=== PATIENT | male | born 1955 | race Hispanic/Latino ===

== ENCOUNTER → 2018-06-10 08:47 | Outpatient (CLI) | payer OTHER, SELFPAY ==
[2018-06-10 09:37] LABS: Creatinine Urine Random 273.5 mg/dL
[2018-06-10 09:40] LABS: Hemoglobin A1C% w Est Avg Glu 6.5 % (4.0-6.0)
[2018-06-10 09:42] LABS: Microalbumi Creatinin Ratio Ur 21.2 ug/mg CR (<30); Microalbumin Urine Random 5.8 mg/dL (0-1.6)
[2018-06-10 10:11] LABS: Alanine Aminotransferase 59 IU/L (21-72); Albumin 4.2 g/dL (3.5-5.0); Albumin Globulin Ratio 1.3 (1.0-2.8); Alkaline Phosphatase 57 U/L (38-126); Aspartate Aminotransferase 58 IU/L (17-59); BUN Creatinine Ratio 13.3 (6-22); Bilirubin Total 0.7 mg/dL (0.2-1.3); Blood Urea Nitrogen 12 mg/dL (9-20); Calcium 9.1 mg/dL (8.4-10.2); Carbon Dioxide 28 mmol/L (22-32); Chloride 103 mmol/L (98-107); Cholesterol 156 mg/dL (140-199); Estimated Glomerular Filt Rate > 60.0 mL/min (>60); Globulin 3.2 g/dL (1.7-4.1); Glucose 141 mg/dL (80-110); HDL Cholesterol 47 mg/dL (40-60); HEMOLYSIS < 15 (0-50); LDL Cholesterol Calculated 79 mg/dL (<100); Potassium 3.8 mmol/L (3.4-5.1); Sodium 144 mmol/L (137-145); Total Protein 7.4 g/dL (6.3-8.2); Triglycerides 148 mg/dL (35-150)
[2018-06-10 10:22] LABS: Vitamin D 25 Hydroxy (D3) 36.3 ng/mL (30.0-100.0)
== END ==
PROVIDERS: PCP Student in an Organized Health Care Education/Training Program; Visit Provider Student in an Organized Health Care Education/Training Program
DX: E11.9 Type 2 diabetes mellitus without complications (principal); E78.00 Pure hypercholesterolemia, unspecified; E55.9 Vitamin D deficiency, unspecified; Z79.899 Other long term (current) drug therapy
CPT/HCPCS: 36415; 80053; 80061; 82043; 82306; 82570; 83036

== ENCOUNTER 2018-11-22 23:42 | Emergency (ER) | payer OTHER, SELFPAY ==
[2018-11-22 23:52] VITALS: BP 152/92; PULSE 88; RESP 20; TEMP 36.6; O2SAT 93; BMI 38.7
--- NOTE | 2018-11-23 01:46 | ED.ABDPAIN ---
HPI - Abdominal Pain General Chief Complaint: Abdominal Pain Stated Complaint: extreme abdominal pain Time Seen by Provider: 11/23/18 01:01 Source: patient Mode of arrival: ambulatory Limitations: no limitations History of Present Illness HPI narrative: Patient is a 63-year-old male here for evaluation of left-sided abdominal pain. Patient states that approximately 1 hr prior to arrival here in the ER he bent over to orange picker his dog when he got a sudden onset of left-sided abdominal pain. He stated that he reaches maximal intensity very quickly. Lasted approximately 15 min and then has gradually improved since then to the point now where it is almost gone. Denies any other associated symptoms. Related Data Home Medications Medication Instructions Recorded Confirmed aspirin 81 mg PO QDAY #0 11/09/17 07/27/18 ranitidine 150 mg capsule 150 mg PO DAILY 07/27/18 Previous Rx's Medication Instructions Recorded albuterol sulfate [Ventolin HFA] 2 puff INH Q4HP PRN #1 ea 11/09/17 metformin ER 500 mg 500 mg PO DAILY #90 tab 10/04/18 tablet,extended release 24 hr losartan 50 mg-hydrochlorothiazide 1 tab PO DAILY #90 tab 11/03/18 12.5 mg tablet simvastatin 20 mg tablet 20 mg PO BEDTIME #90 tab 11/03/18 blood sugar diagnostic strips #100 each 11/21/18 lancets #100 each 11/21/18 Allergies Allergy/AdvReac Type Severity Reaction Status Date / Time iodine [IODINE] Allergy Unknown Verified 11/22/18 23:52 shellfish derived Allergy Unknown Verified 11/22/18 23:52 [SHELLFISH DERIVED] MIRIAM Inhibitors AdvReac Mild Cough Verified 11/22/18 23:52 Review of Systems Constitutional Denies fever(s) Cardiovascular Denies chest pain and Denies dyspnea Respiratory Denies dyspnea Gastrointestinal Gastrointestinal: Reports abdominal pain, Denies diarrhea, Denies nausea and Denies vomiting Genitourinary Denies genital pain, Denies dysuria and Denies testicular pain Musculoskeletal Denies myalgias and Denies arthralgias Integumentary/Breasts Denies rash Neurologic Denies behavioral changes Psychiatric Denies behavioral changes Hematologic/Lymphatic Denies easy bleeding and Denies easy bruising [facility] Medical History Actinic keratosis (Chronic Unknown) Asthma (Chronic Unknown) Chronic back pain (Chronic Unknown) Diabetes (Chronic 2017) Glaucoma (Chronic 2010) Vertigo (Chronic 2004) Acne (Resolved Unknown) Chickenpox (Resolved) Fractures (Resolved Unknown) Measles (Resolved) Mumps (Resolved) Shoulder pain (Resolved Unknown) Tuberculosis (Resolved Unknown) Surgical History Hx of shoulder surgery (Resolved 2016) Family History Father No problems noted. Brother No problems noted. Sister Diabetes mellitus Grandfather Diabetes mellitus Social History Smoking Status: Never smoker alcohol intake: current substance use type: does not use Family History Father No problems noted. Brother No problems noted. Sister Diabetes mellitus Grandfather Diabetes mellitus Social History Smoking Status: Never smoker alcohol intake: current substance use type: does not use Exam Initial Vital Signs Initial Vital Signs: Vital Signs Temperature 97.8 F 11/22/18 23:52 Pulse Rate 88 11/22/18 23:52 Respiratory Rate 20 11/22/18 23:52 Blood Pressure 152/92 H 11/22/18 23:52 Pulse Oximetry 93 11/22/18 23:52 Const General: cooperative, comfortable, well developed, well groomed and No acute distress Orientation: alert, awake and oriented x3 Resp Effort & Inspection: normal respiratory effort Auscultation: clear to auscultation bilaterally Cardio Rate: regular rate Rhythm: regular rhythm GI Inspection: non-distended Palpation: soft, No firm and No tender Back/Spine/Pelvis Back: No CVA tenderness Skin Lesions: no lesions Rashes: no rashes Wounds: no wounds Neuro General: alert, awake and oriented x3 Cognition: normal cognition Speech: speech normal Extrem General: normal to inspection and capillary refill normal Psych Appearance: grossly normal and well kempt Course Orders Ordered: ED Orders 11/23/18 01:02 Complete Blood Count AUTO DIFF Stat Comprehensive Metabolic Panel Stat Lipase Stat Vital Signs - 8 hr 11/22/18 23:52 11/23/18 02:05 Temperature 97.8 F 98.2 F Pulse Rate 88 84 Respiratory Rate 20 18 Blood Pressure 152/92 H Pulse Oximetry 93 96 MDM - Abdominal Pain MDM Narrative Medical decision making narrative: No rashes concerning for zoster. No urinary symptoms. He stated that the pain was worse with palpation which makes kidney stone unlikely. Patient without any fevers or change in bowel habits. Since the symptoms were sudden onset when he bent over and are now improving this makes diverticulitis unlikely. I discussed all this with the patient his . They opted not to have any labs or CT scan or x-rays performed. I do not think this is unreasonable. Patient stated that he will follow up with his primary doctor. He was given return precautions. He expressed understanding and agreement with plan. Discharge Plan Departure Patient Disposition: Home Clinical Impression: Abdominal pain Qualifiers: Abdominal location: left lower quadrant Qualified Code(s): R10.32 - Left lower quadrant pain Discharge Date/Time: 11/23/18 02:05 Interventions: ED Discharge Assessment Last Done: 11/23/18 02:05 Instructions: DI for Abdominal Muscle Strain Activity Restrictions/Additional Instructions: Contact your primary care doctor. Return to the emergency department for any new or worsening symptoms Prescriptions: No Action aspirin 81 MG tablet,delayed release (DR/EC) 81 mg PO QDAY Qty: 0 RF: 0 albuterol sulfate [Ventolin HFA] 90 MCG/PUFF HFA aerosol inhaler 2 puff INH Q4HP PRNQty: 1 RF: 5 metformin [Glucophage XR] 500 mg tablet extended release 24 hr 500 mg PO DAILY Qty: 90 RF: 1 losartan-hydrochlorothiazide 50-12.5 mg tablet 1 tab PO DAILY Qty: 90 RF: 3 simvastatin 20 mg tablet 20 mg PO BEDTIME Qty: 90 RF: 3 Accu-Chek Isis Plus test strp strip .ROUTE .MEDSUPPLY Qty: 100 RF: 3 lancets [Accu-Chek Softclix Lancets] misc .ROUTE .MEDSUPPLY Qty: 100 RF: 3 ranitidine HCl 150 mg capsule 150 mg PO DAILY RF: 0 Referrals: Román Solano MD [Primary Care Provider] -
[2018-11-23 02:05] VITALS: PULSE 84; RESP 18; TEMP 36.8; O2SAT 96
== END 2018-11-23 02:05 | disposition home or self-care (01) ==
PROVIDERS: Emergency Provider Emergency Medicine; Family Provider Student in an Organized Health Care Education/Training Program; PCP Student in an Organized Health Care Education/Training Program
DX: R10.32 Left lower quadrant pain (principal)
CPT/HCPCS: 99282; 99283

== ENCOUNTER → 2019-06-01 07:33 | Outpatient (CLI) | payer MEDICARE, OTHER, SELFPAY ==
[2019-06-01 08:30] LABS: BUN Creatinine Ratio 17.8 (6-22); Blood Urea Nitrogen 16 mg/dL (9-20); Calcium 9.3 mg/dL (8.4-10.2); Carbon Dioxide 26 mmol/L (22-32); Chloride 104 mmol/L (98-107); Creatine Kinase 210 U/L (55-170); Estimated Glomerular Filt Rate > 60.0 mL/min (>60); Glucose 131 mg/dL (80-110); HEMOLYSIS < 15 (0-50); Magnesium 2.2 mg/dL (1.6-2.3); Potassium 4.1 mmol/L (3.4-5.1); Sodium 140 mmol/L (137-145)
[2019-06-01 08:59] LABS: Prostate Specific Antigen 1.16 ng/mL (0.10-4.00)
== END ==
PROVIDERS: PCP Student in an Organized Health Care Education/Training Program; Visit Provider Student in an Organized Health Care Education/Training Program
DX: E11.9 Type 2 diabetes mellitus without complications (principal); E66.09 Other obesity due to excess calories; I10 Essential (primary) hypertension; R25.2 Cramp and spasm; Z85.46 Personal history of malignant neoplasm of prostate
CPT/HCPCS: 36415; 80048; 82550; 83036; 83735; 84153

== ENCOUNTER → 2019-09-22 12:00 | Outpatient (CLI) | payer MEDICARE, OTHER, SELFPAY ==
[2019-09-22 13:13] LABS: Blood Urea Nitrogen 14 mg/dL (9-20); Calcium 9.9 mg/dL (8.4-10.2); Carbon Dioxide 26 mmol/L (22-32); Chloride 102 mmol/L (98-107); Cholesterol 187 mg/dL (140-199); Creatine Kinase 264 U/L (55-170); Estimated Glomerular Filt Rate > 60.0 mL/min (>60); Glucose 99 mg/dL (80-110); HDL Cholesterol 47 mg/dL (40-60); HEMOLYSIS 20 (0-50); LDL Cholesterol Calculated 109 mg/dL (<100); Potassium 3.9 mmol/L (3.4-5.1); Sodium 138 mmol/L (137-145); Triglycerides 154 mg/dL (35-150)
== END ==
PROVIDERS: PCP Student in an Organized Health Care Education/Training Program; Visit Provider Student in an Organized Health Care Education/Training Program
DX: E11.9 Type 2 diabetes mellitus without complications (principal); I10 Essential (primary) hypertension; R25.2 Cramp and spasm
CPT/HCPCS: 80048; 80061; 82550

== ENCOUNTER → 2019-12-21 10:18 | Outpatient (CLI) | payer MEDICARE, OTHER, SELFPAY | PROVIDERS: PCP Student in an Organized Health Care Education/Training Program; Visit Provider Family Medicine | DX: R31.9 Hematuria, unspecified (principal); R35.0 Frequency of micturition | CPT/HCPCS: 87077; 87086; 87186 ==

== ENCOUNTER → 2020-02-08 11:02 | Outpatient (CLI) | payer MEDICARE, OTHER, SELFPAY ==
[2020-02-08 12:22] LABS: Hemoglobin A1C% w Est Avg Glu 6.3 % (4.0-6.0)
== END ==
PROVIDERS: PCP Student in an Organized Health Care Education/Training Program; Referring Provider Student in an Organized Health Care Education/Training Program; Visit Provider Student in an Organized Health Care Education/Training Program
DX: Z13.9 Encounter for screening, unspecified (principal); E11.9 Type 2 diabetes mellitus without complications
CPT/HCPCS: 36415; 83036

== ENCOUNTER 2020-04-13 18:02 | Emergency (ER) | payer MEDICARE, OTHER, SELFPAY ==
[2020-04-13 18:26] VITALS: BMI 39.4
[2020-04-13 18:30] VITALS: BP 129/82; PULSE 99; RESP 20; TEMP 37.1; O2SAT 99
--- NOTE | 2020-04-13 18:46 | ED_ITS ---
HPI - Extremity Injury (Lower) General Chief Complaint: Extremity Injury, Lower Stated Complaint: total knee Wed, has a fever now Time Seen by Provider: 04/13/20 18:13 Source: patient and family Mode of arrival: Ambulatory Limitations: no limitations History of Present Illness HPI Narrative: 64-year-old male nonsmoker with history of diabetes and hypertension presents with a chief complaint of a low-grade fever of 99 with some pain in his right lower extremity over the past few days. He states 4 days ago he had a right total knee performed at the [facility]. He denies any drainage from the incision. He is not dizzy nor weak or lightheaded. He denies any runny nose, sore throat or cough. He has had no chest pain or shortness of breath. He denies any discoloration to his lower extremity. Related Data Previous Rx's Medication Instructions Recorded blood sugar diagnostic #100 each 11/21/18 lancets #100 each 11/21/18 albuterol sulfate 90 mcg/actuation 2 puff INHALATION Q4HP PRN #6.7 09/22/19 aerosol inhaler gram tizanidine 4 mg tablet 4 mg PO BID PRN #60 tab 09/29/19 metformin 500 mg tablet,extended 500 mg PO DAILY #90 tab 10/24/19 release 24 hr losartan 50 mg tablet 50 mg PO DAILY #90 tab 01/19/20 Allergies Allergy/AdvReac Type Severity Reaction Status Date / Time iodine [IODINE] Allergy Unknown Verified 03/28/20 10:12 shellfish derived Allergy Unknown Verified 03/28/20 10:12 [SHELLFISH DERIVED] Cenxoqu-Xuh-Jtl Reductase AdvReac Intermediate Rhabdomyoly Verified 03/28/20 10:12 Inhibitor sis MIRIAM Inhibitors AdvReac Mild Cough Verified 03/28/20 10:12 Review of Systems Constitutional Constitutional: Denies chills, Denies fatigue, Reports fever(s), Denies frequent falls, Denies lethargy and Denies weakness Eyes Eyes: Denies change in vision, Denies eye discharge, Denies irritation and Denies loss of vision ENT Ears, Nose, Mouth, and Throat: Denies change in voice, Denies dizziness, Denies neck pain, Denies sore throat and Denies throat swelling Cardiovascular Cardiovascular: Denies chest pain, Denies irregular heart rhythm, Denies lightheadedness, Denies palpitations, Denies dyspnea, Denies dyspnea on exertion and Denies orthopnea Respiratory Respiratory: Denies cough, Denies dyspnea, Denies dyspnea on exertion and Denies wheezing Gastrointestinal Gastrointestinal: Denies abdominal pain, Denies change in bowel habits, Denies diarrhea, Denies nausea and Denies vomiting Musculoskeletal Musculoskeletal: Reports arthralgias, Reports joint swelling, Denies neck pain and Denies numbness Integumentary/Breasts Skin/Breast: Denies pruritus, Denies erythema, Denies rash and Denies wounds Neurologic Neurologic: Denies behavioral changes, Denies confusion, Denies dizziness, Denies frequent falls, Denies loss of vision, Denies numbness and Denies weakness Psychiatric Psychiatric: Denies anxiety, Denies behavioral changes, Denies confusion, Denies depression, Denies homicidal ideation and Denies suicidal ideation Endocrine Endocrine: Denies fatigue, Denies flushing and Denies palpitations Hematologic/Lymphatic Hematologic/Lymphatic: Denies easy bruising Allergic/Immunologic Allergic/Immunologic: Denies urticaria, Denies throat swelling and Denies wheezing Patient History Medical History Acne (Resolved Unknown) Actinic keratosis (Chronic Unknown) Asthma (Chronic Unknown) Chickenpox (Resolved) Chronic back pain (Chronic Unknown) Diabetes (Chronic 2017) Fractures (Resolved Unknown) Glaucoma (Chronic 2010) Measles (Resolved) Mumps (Resolved) Shoulder pain (Resolved Unknown) Tuberculosis (Resolved Unknown) Vertigo (Chronic 2004) Surgical History History of prostate surgery (Acute) Hx of shoulder surgery (Resolved 2016) Family History Father No problems noted. Brother No problems noted. Sister Diabetes mellitus Grandfather Diabetes mellitus Social History Smoking Status: Never smoker alcohol intake: current substance use type: does not use Smoking Status: Never smoker alcohol intake frequency: a few times a week Substance Use Type: does not use Exam Narrative Exam Narrative: GENERAL: [64] year old patient appears stated age. Well-nouris hed, well-developed patient, in mild distress. HEAD: Atraumatic. Normocephalic. EYES: Pupils equal round and reactive. Extraocular motions intact. No scleral icterus. No injection or drainage. ENT: Nose without bleeding, purulent drainage. Throat without erythema, tonsillar hypertrophy or exudate. Airway patent. NECK: Trachea midline. Non tender CARDIOVASCULAR: Regular rate and rhythm without murmurs, gallops, or rubs. RESPIRATORY: Clear to auscultation. Breath sounds equal bilaterally. No wheezes, rales, or rhonchi. GASTROINTESTINAL: Abdomen soft, non-tender, nondistended. EXTREMITIES: Right knee midline surgical incision is clean, dry and intact. No significant or unexpected swelling to the knee. No pain, redness or swelling to the calf or medial thigh. No edema or joint tenderness. BACK: Nontender without deformity or crepitance. No flank tenderness. NEURO: AOx3. SKIN: No rash or erythema of visible areas Initial Vital Signs Initial Vital Signs: Vital Signs Temperature 98.8 F 04/13/20 18:30 Pulse Rate 99 H 04/13/20 18:30 Respiratory Rate 20 04/13/20 18:30 Blood Pressure 129/82 04/13/20 18:30 Pulse Oximetry 99 04/13/20 18:30 Course Course Course Narrative: Patient has a very reassuring exam and labs. Discussion with on-call orthopedist with the patient's croup and they sure the opinion that these are most likely common sequela in the post surgical phase and recommend discharge with previously given discharge instructions. Orders Ordered: Discontinued Medications Sodium Chloride (Normal Saline 0.9%) 1,000 mls @ 125 mls/hr IV CONT GIOVANNA Vital Signs Vital signs: Vital Signs - 8 hr 04/13/20 18:30 Temperature 98.8 F Pulse Rate 99 H Respiratory Rate 20 Blood Pressure 129/82 Pulse Oximetry 99 MDM - Extremity Injury (Lower) Lab Data Result diagrams: 04/13/20 19:41 Labs: Lab Results 04/13/20 04/13/20 04/13/20 Range/Units 19:41 19:41 19:41 WBC 6.2 (4.5-11.0) X10^3/uL RBC 3.63 L (4.5-5.9) X10^6/uL Hgb 12.0 L (13.5-17.5) g/dL Hct 34.9 L (41-53) % MCV 96.1 (80-100) fL MCH 33.1 (26-34) PG MCHC 34.4 (30-36) % RDW 13.6 (11.6-14.8) % Plt Count 122 L (150-400) X10^3/uL Neut % (Auto) 65.8 (50-75) % Lymph % (Auto) 24.1 L (25-40) % [place] % (Auto) 8.9 (3-14) % Eos % (Auto) 0.8 L (2-4) % Baso % (Auto) 0.4 (0-2) % Neut # (Auto) 4100 (8743-5642) /uL Lymph # (Auto) 1500 (2322-4444) /uL [place] # (Auto) 600 (0-900) /uL Eos # (Auto) 0 (0-450) /uL Baso # (Auto) 0 (0-100) /uL Lactate 0.8 (0.7-2.1) mmol/L C-Reactive Protein (<1.0) mg/dL Procalcitonin < 0.05 (<0.5) ng/mL 04/13/20 Range/Units 19:41 WBC (4.5-11.0) X10^3/uL RBC (4.5-5.9) X10^6/uL Hgb (13.5-17.5) g/dL Hct (41-53) % MCV (80-100) fL MCH (26-34) PG MCHC (30-36) % RDW (11.6-14.8) % Plt Count (150-400) X10^3/uL Neut % (Auto) (50-75) % Lymph % (Auto) (25-40) % [place] % (Auto) (3-14) % Eos % (Auto) (2-4) % Baso % (Auto) (0-2) % Neut # (Auto) (3138-9836) /uL Lymph # (Auto) (9776-6172) /uL [place] # (Auto) (0-900) /uL Eos # (Auto) (0-450) /uL Baso # (Auto) (0-100) /uL Lactate (0.7-2.1) mmol/L C-Reactive Protein 16.4 H (<1.0) mg/dL Procalcitonin (<0.5) ng/mL Urine Dip Bedside Urine Glucose Negative Bedside Urine Bilirubin - Negative Bedside Urine Ketone +/- 5 Urine Specific [place] 1.010 Bedside Urine Occult Blood - Negative Bedside Urine pH 7.5 Bedside Urine Protein - Negative Bedside Urine Urobilinogen - Negative Bedside Urine Nitrite - Negative Bedside Urine Leukocytes - Negative Esterase Discharge Plan Departure Patient Disposition: Home Clinical Impression: Feared complaint without diagnosis, Swelling of lower extremity Discharge Date/Time: 04/13/20 20:16 Instructions: DI for Postoperative Pain Activity Restrictions/Additional Instructions: *You have been diagnosed with [postoperative swelling and low-grade fever. We have discussed this with your surgical team and they sure the opinion that this is unlikely to be infection or other concerning cause and likely and expected consequence of her surgery.] *What to do: *Take medications as directed *Follow up with your primary care provider in 2-3 days, call for an appointment. Let them know you were seen in the Emergency Department and that we ask that you be seen in follow up *Return to ER if you should have any new, worsening or concerning symptoms Prescriptions: No Action (DME) Accu-Chek Isis Plus test strp strip See Dose Instructions .ROUTE .MEDSUPPLY Qty: 100 RF: 3 (DME) lancets [Accu-Chek Softclix Lancets] misc See Dose Instructions .ROUTE .MEDSUPPLY Qty: 100 RF: 3 tizanidine 4 mg tablet 4 mg PO BID PRN (Reason: muscle spasticity) Qty: 60 RF: 2 metformin [Glucophage XR] 500 mg tablet extended release 24 hr 500 mg PO DAILY Qty: 90 RF: 1 losartan 50 mg tablet 50 mg PO DAILY Qty: 90 RF: 1 albuterol sulfate [Ventolin HFA] 90 mcg/actuation HFA aerosol inhaler 2 puff inhalation Q4HP PRN (Reason: shortness of breath or wheezing) Qty: 6.7 RF: 11 Referrals: Román Solano MD [Primary Care Provider] -
--- NOTE | 2020-04-13 19:07 | DI.RAD.S_ITS ---
PROCEDURE: XR CHEST 1V INDICATIONS: post operative fever TECHNIQUE: One view of the chest was acquired. COMPARISON: None. FINDINGS: Surgical changes and devices: None. Lungs and pleura: Lungs are clear. No pleural effusions or pneumothorax. Mediastinum: Mediastinal contours appear normal. Heart size is normal. Bones and chest wall: No suspicious bony lesions. Overlying soft tissues appear unremarkable. IMPRESSION: No evidence acute pulmonary process. Dictated by: Hugo Carlos M.D. on 04/13/2020 at 19:41 Approved by: Hugo Carlos M.D. on 04/13/2020 at 19:42
--- NOTE | 2020-04-13 19:09 | PC.NURSE ---
Spoke with pt's surgeon resident David and he stated that him and the pt's MD Goldman believe this to be a normal post fever and swelling d\t an increase in activity. Information passed along to Dr. Brink
[2020-04-13 19:50] LABS: Add Manual Diff / Slide Review NO; Basophils Absolute Auto 0 /uL (0-100); Basophils Percent Auto 0.4 % (0-2); Eosinophils Absolute Auto 0 /uL (0-450); Eosinophils Percent Auto 0.8 % (2-4); Hematocrit 34.9 % (41-53); Lymphocytes Absolute Auto 1500 /uL (1100-4500); Lymphocytes Percent Auto 24.1 % (25-40); Mean Corpuscular HGB Conc 34.4 % (30-36); Mean Corpuscular Hemoglobin 33.1 PG (26-34); Mean Corpuscular Volume 96.1 fL (80-100); Monocytes Absolute Auto 600 /uL (0-900); Monocytes Percent Auto 8.9 % (3-14); Neutrophils Absolute Auto 4100 /uL (1500-7000); Neutrophils Percent Auto 65.8 % (50-75); Platelet Count 122 X10^3/uL (150-400); Red Blood Cell Count 3.63 X10^6/uL (4.5-5.9); Red Cell Distribution Width 13.6 % (11.6-14.8); White Blood Cell Count 6.2 X10^3/uL (4.5-11.0)
[2020-04-13 20:03] LABS: Lactate (Lactic Acid) 0.8 mmol/L (0.7-2.1)
[2020-04-13 20:11] VITALS: BP 123/80; PULSE 93; RESP 16; O2SAT 94
[2020-04-13 20:17] LABS: C-Reactive Protein Quant 16.4 mg/dL (<1.0)
[2020-04-13 20:20] LABS: Procalcitonin < 0.05 ng/mL (<0.5)
== END 2020-04-13 20:16 | disposition home or self-care (01) ==
PROVIDERS: Emergency Provider Emergency Medicine; PCP Student in an Organized Health Care Education/Training Program
DX: G89.18 Other acute postprocedural pain (principal); R50.9 Fever, unspecified; E11.9 Type 2 diabetes mellitus without complications; I10 Essential (primary) hypertension; Z96.651 Presence of right artificial knee joint
CPT/HCPCS: 36415; 71045; 81003; 83605; 84145; 85025; 86140; 87040; 99283; 99284

== ENCOUNTER → 2020-05-03 14:26 | Outpatient (CLI) | payer MEDICARE, OTHER, SELFPAY ==
[2020-05-03 16:44] LABS: Prostate Specific Antigen 1.31 ng/mL (0.10-4.00)
== END ==
PROVIDERS: PCP Student in an Organized Health Care Education/Training Program; Referring Provider Urology; Visit Provider Urology
DX: Z12.5 Encounter for screening for malignant neoplasm of prostate (principal)
CPT/HCPCS: 36415; 84153; G0103

== ENCOUNTER 2020-07-01 09:45 | Outpatient (RCR) | payer MEDICARE, OTHER, SELFPAY ==
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
--- NOTE | 2020-04-15 12:51 | PT.OPPOC ---
Physical, Occupational & Speech Therapy At [facility] Current Diagnoses Presence of right artificial knee joint (04/15/20) Visit Care Team Role Provider Type Román Solano MD Primary Care Provider Physician Specialty: Internal Medicine Address: [address] [place] [address], [address], [place], [address] Email: [email or web address] Dionisio Goldman MD Attending Provider Non-Staff Referring Provider Specialty: Orthopedic Surgery Address: [address] [facility], [address], [place], [address] Email: Plan Of Care PT-OP-T Assessment and Plan Start: 04/15/20 07:21 Freq: Status: Active Protocol: Document 04/15/20 08:11 MB (Rec: 04/15/20 08:56 MB [id number]) Physical Therapy Assessment Rehab Potential Rehabilitation Potential Good Evaluation Complexity Number of Personal Factors/Comorbidities 1-2 Number of Body Systems Impaired 1-2 Clinical Presentation at Evaluation Stable Impairments Impairments Activity Tolerance,Balance, Edema,Functional Activities, Functional Mobility,Gait, Integument,Pain,Posture,ROM, Sensation,Soft Tissue Mobility ,Strength Other Impairments Pt reports mild numbness and tingling lateral, medial and posterior right knee. PT does not doff right LAURA hose and PT observes long scab vertically across right knee and ecchymosis under LAURA hose. Goals 5 Health Technician Hearing Goal (LTG) Pt will gait train 4 steps with 1 rail with reciprocal gait to allow safe entry into home by 06/15/2020. LTG Duration 8 weeks 4 Senior Care Goal (LTG) Pt will perform progressive HEP including alignment, ROM, flexibility, gait, balance and strengthening exercises with I to improve strength and range by 06/25/2020. LTG Duration 8 weeks 3 Health Technician Hearing Goal (LTG) Pt will perform 15 reps sit to stand without UE support in 30 sec to improve functional strength by by 06/25/2020. LTG Duration 8 weeks 2 Senior Care Goal (LTG) Pt will present with AROM right knee to at least 0-125 deg to improve functional transfers by 06/25/2020. LTG Duration 8 weeks 1 Impairment LEF reflects 76.25% dysfunction Senior Care Goal (LTG) Pt will present with improved LEF score to reflect no more than 25% impairment to reflect improved pain and function by 06/15/2020. LTG Duration 8 weeks Assessment Summary Assessment Pt is a 64 y/o male presenting 5 days post-op right TKR. Pt' s biggest complaints are 5-6/ 10 right anterior, lateral and posterior thigh and knee pain and swelling. He wears thigh high LAURA hose and presents with scab, ecchymosis and edema under hose. Pt arrives gait training with mostly reciprocal gait using RW and he presents with decreased balance, range of motion and strength. PT ed pt in benefits of using frozen vegetables that conform to surface on top of and underneath his right knee while elevating his right leg and performing APs. He will benefit from PT to improve gait, balance, range of motion, flexibility and strength. Current barriers are edema and pain after TKR. Physical Therapy Plan Frequency and Duration Frequency of Treatment 2x/Week Duration of Treatment 8 weeks Plan of Care Start Date 04/15/20 Plan of Care End Date 06/17/20 Therapeutic Interventions Therapeutic Interventions Aquatic Therapy,Balance Training,Canalithic Repositioning,Gait Training, Home Exercise Program,Manual Therapy,Neuromuscular Re- education,Patient/Caregiver Education,Self-Care/Home Management,Soft Tissue Mobilization,Taping, Therapeutic Activities, Therapeutic Exercises Modalities Cold Pack/Ice Massage,Electric Stimulation,Hot Packs, Ultrasound Next Visit Focus/Plan Next Note Type Treatment Note Next Visit Plan Assess gait with cane and start NuStep to improve right knee range Plan of Care Dates Plan of Care Start Date 04/15/20 Plan of Care End Date 06/17/20 Electronically Signed by: Ginny Keenan PT 04/15/20 [id number] Please Sign and Return: I have reviewed this Plan of Care and certify that the skilled therapy services above are required to meet the patient?s needs. Physician Signature Date Printed Name and Credentials Clinical Instructor Signature Printed Name and Credentials
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
--- NOTE | 2020-05-24 09:01 | PT.OPPOC ---
Physical, Occupational & Speech Therapy At [facility] Current Diagnoses Presence of right artificial knee joint (05/24/20) Visit Care Team Role Provider Type Román Solano MD Primary Care Provider Physician Specialty: Internal Medicine Address: [address] [place] [address], [address], [place], [address] Email: [email or web address] Dionisio Goldman MD Attending Provider Non-Staff Referring Provider Specialty: Orthopedic Surgery Address: [address], [address], [place], [address] Email: Plan Of Care PT-OP-T Assessment and Plan Start: 04/15/20 07:21 Freq: Status: Active Protocol: Document 05/24/20 08:16 MB (Rec: 05/24/20 08:59 MB [id number]) Physical Therapy Assessment Rehab Potential Rehabilitation Potential Good Evaluation Complexity Number of Personal Factors/Comorbidities 1-2 Number of Body Systems Impaired 1-2 Clinical Presentation at Evaluation Stable Impairments Impairments Activity Tolerance,Balance, Edema,Functional Activities, Functional Mobility,Gait, Integument,Pain,Posture,ROM, Sensation,Soft Tissue Mobility ,Strength Other Impairments Pt reports mild numbness and tingling lateral, medial and posterior right knee. PT does not doff right LAURA hose and PT observes long scab vertically across right knee and ecchymosis under LAURA hose. Goals 6 Care Home Goal (LTG) Pt will gait train at least 1500 feet in 6 minutes without AD to return to normal community ambulation by 2019. 05/24/2020: 1263 ft in 6 minutes without AD 5 Pipeline Dispatch Operator Goal (LTG) Pt will gait train 4 steps with 1 rail with reciprocal gait to allow safe entry into home by 06/15/2020. 05/24/2020: Pt has been performing reciprocal gait with 1 step LTG Duration Goal met 4 Pipeline Dispatch Operator Goal (LTG) Pt will perform progressive HEP including alignment, ROM, flexibility, gait, balance and strengthening exercises with I to improve strength and range by 07/24/2020. 05/24/2020: Pt is focusing on stairs and stair stretch and is not using cane as much LTG Duration 8 weeks 3 Pipeline Dispatch Operator Goal (LTG) Pt will perform 15 reps sit to stand without UE support in 30 sec to improve functional strength by by 07/24/2020. 05/24/2020: 11 reps in 30 sec LTG Duration 8 weeks 2 Care Home Goal (LTG) Pt will present with AROM right knee to at least 0-115 deg to improve functional transfers by 07/24/2020. 05/24/2020: AROM right knee 0- 100 deg today LTG Duration 8 weeks 1 Impairment LEF reflects 76.25% dysfunction Care Home Goal (LTG) Pt will present with improved LEF score to reflect no more than 25% impairment to reflect improved pain and function by 07/24/2020. 05/24/2020: LEF score reflects 51.25% impairment LTG Duration 8 weeks Assessment Summary Assessment Pt has progressed towards all PT goals since starting PT. These include ROM, sit to stands (functional strengthening), gait without AD, performance of HEP and LE functional index goal. Pt will benefit from ongoing PT to improve balance, range and functional strength. Con't progression including gait, flexibility, range and strength. Physical Therapy Plan Frequency and Duration Frequency of Treatment 2x/Week Duration of Treatment 8 weeks Plan of Care Start Date 05/24/20 Plan of Care End Date 07/24/20 Therapeutic Interventions Therapeutic Interventions Aquatic Therapy,Balance Training,Canalithic Repositioning,Gait Training, Home Exercise Program,Manual Therapy,Neuromuscular Re- education,Patient/Caregiver Education,Self-Care/Home Management,Soft Tissue Mobilization,Taping, Therapeutic Activities, Therapeutic Exercises Modalities Cold Pack/Ice Massage,Electric Stimulation,Hot Packs, Ultrasound Next Visit Focus/Plan Next Note Type Treatment Note Next Visit Plan Consider adding band to sit to stands. Progress flexibility including stretches, strengthening. gait, consider manually assisted PNF to assist with right knee functional range/neuromuscular re-ed Plan of Care Dates Plan of Care Start Date 05/24/20 Plan of Care End Date 07/24/20 Electronically Signed by: Ginny Keenan, PT 05/24/20 0901 Please Sign and Return: I have reviewed this Plan of Care and certify that the skilled therapy services above are required to meet the patient?s needs. Physician Signature Date Printed Name and Credentials Clinical Instructor Signature Printed Name and Credentials
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
--- NOTE | 2020-06-03 09:18 | PT-OP ANOTE ---
Pt does not show for appointment. When PT calls him, he states that he cancelled the appointment via Tele[employer]. Pt confirms Wednesday appointment.
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
== END 2020-07-08 15:21 ==
LOC: PHYS 09:45
PROVIDERS: PCP Student in an Organized Health Care Education/Training Program; Referring Provider Orthopaedic Surgery; Visit Provider Orthopaedic Surgery
DX: Z96.651 Presence of right artificial knee joint (principal)
CPT/HCPCS: 97110; 97112; 97116; 97140; 97161; 97535

== ENCOUNTER → 2020-08-20 11:53 | Outpatient (CLI) | payer MEDICARE, OTHER, SELFPAY ==
[2020-08-20 12:34] LABS: Hemoglobin A1C% w Est Avg Glu 6.6 % (4.0-6.0)
== END ==
PROVIDERS: PCP Student in an Organized Health Care Education/Training Program; Referring Provider Student in an Organized Health Care Education/Training Program; Visit Provider Student in an Organized Health Care Education/Training Program
DX: E11.9 Type 2 diabetes mellitus without complications (principal)
CPT/HCPCS: 36415; 83036

== ENCOUNTER 2020-08-28 15:28 | Emergency (ER) | payer MEDICARE, OTHER, SELFPAY ==
[2020-08-28 15:35] VITALS: BP 136/90; PULSE 118; RESP 16; TEMP 37.1; O2SAT 95; BMI 37.8
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
[2020-08-28] MEDS: TET,DIPH,PERTUSS(ACELL),VAC/PF 0.5 ML SYRINGE IM (16:31)
[2020-08-28 16:52] VITALS: BP 130/86; PULSE 102; RESP 18; O2SAT 94
== END 2020-08-28 16:53 | disposition home or self-care (01) ==
PROVIDERS: Emergency Provider Emergency Medicine; PCP Student in an Organized Health Care Education/Training Program
DX: S01.81XA Laceration without foreign body of other part of head, initial encounter (principal); W22.8XXA Striking against or struck by other objects, initial encounter; Z23 Encounter for immunization
CPT/HCPCS: 90471; 99281; 99283; 90715

== ENCOUNTER → 2021-03-28 09:24 | Outpatient (CLI) | payer MEDICARE, SELFPAY ==
[2021-03-28 10:04] LABS: Add Manual Diff / Slide Review NO; Basophils Absolute Auto 0 /uL (0-100); Basophils Percent Auto 0.5 % (0-2); Eosinophils Absolute Auto 100 /uL (0-450); Eosinophils Percent Auto 2.7 % (2-4); Hematocrit 45.8 % (41-53); Hemoglobin 15.3 g/dL (13.5-17.5); Lymphocytes Absolute Auto 1900 /uL (1100-4500); Lymphocytes Percent Auto 40.7 % (25-40); Mean Corpuscular HGB Conc 33.4 % (30-36); Mean Corpuscular Hemoglobin 32.8 PG (26-34); Mean Corpuscular Volume 98.1 fL (80-100); Monocytes Absolute Auto 400 /uL (0-900); Monocytes Percent Auto 8.2 % (3-14); Neutrophils Absolute Auto 2200 /uL (1500-7000); Neutrophils Percent Auto 47.9 % (50-75); Platelet Count 129 X10^3/uL (150-400); Red Blood Cell Count 4.67 X10^6/uL (4.5-5.9); Red Cell Distribution Width 13.7 % (11.6-14.8); White Blood Cell Count 4.6 X10^3/uL (4.5-11.0)
[2021-03-28 10:27] LABS: Alanine Aminotransferase 36 IU/L (<50); Albumin 4.1 g/dL (3.5-5.0); Albumin Globulin Ratio 1.1 (1.0-2.8); Alkaline Phosphatase 62 U/L (38-126); Aspartate Aminotransferase 40 IU/L (17-59); BUN Creatinine Ratio 15.5 (6-22); Bilirubin Total 0.7 mg/dL (0.2-1.3); Blood Urea Nitrogen 15 mg/dL (9-20); Calcium 9.4 mg/dL (8.4-10.2); Carbon Dioxide 23 mmol/L (22-32); Chloride 108 mmol/L (98-107); Cholesterol 213 mg/dL (140-199); Estimated Glomerular Filt Rate > 60.0 mL/min (>60); Globulin 3.7 g/dL (1.7-4.1); Glucose 117 mg/dL (80-110); HDL Cholesterol 48 mg/dL (40-60); HEMOLYSIS < 15 (0-50); LDL Cholesterol Calculated 133 mg/dL (<100); Potassium 4.2 mmol/L (3.4-5.1); Sodium 138 mmol/L (137-145); Total Protein 7.8 g/dL (6.3-8.2); Triglycerides 160 mg/dL (35-150)
[2021-03-28 10:33] LABS: Hemoglobin A1C% w Est Avg Glu 6.1 % (4.0-6.0)
[2021-03-28 11:24] LABS: Creatinine Urine Random 236.5 mg/dL
[2021-03-28 11:27] LABS: Microalbumin Urine Random 1.9 mg/dL (0-1.6)
== END ==
PROVIDERS: PCP Family Medicine; Referring Provider Family Medicine; Visit Provider Family Medicine
DX: D61.818 Other pancytopenia (principal); E11.9 Type 2 diabetes mellitus without complications; E78.00 Pure hypercholesterolemia, unspecified; I10 Essential (primary) hypertension
CPT/HCPCS: 36415; 80053; 80061; 82043; 82570; 83036; 85025

== ENCOUNTER → 2021-10-17 09:57 | Outpatient (CLI) | payer MEDICARE, SELFPAY ==
[2021-10-17 11:51] LABS: Add Manual Diff / Slide Review NO; Basophils Absolute Auto 0 /uL (0-100); Basophils Percent Auto 0.8 % (0-2); Eosinophils Absolute Auto 100 /uL (0-450); Hematocrit 44.3 % (41-53); Hemoglobin 15.3 g/dL (13.5-17.5); Lymphocytes Absolute Auto 1600 /uL (1100-4500); Lymphocytes Percent Auto 40.2 % (25-40); Mean Corpuscular HGB Conc 34.4 % (30-36); Mean Corpuscular Hemoglobin 32.9 PG (26-34); Mean Corpuscular Volume 95.5 fL (80-100); Monocytes Absolute Auto 300 /uL (0-900); Monocytes Percent Auto 8.2 % (3-14); Neutrophils Absolute Auto 1900 /uL (1500-7000); Neutrophils Percent Auto 47.8 % (50-75); Platelet Count 119 X10^3/uL (150-400); Red Blood Cell Count 4.64 X10^6/uL (4.5-5.9); Red Cell Distribution Width 13.6 % (11.6-14.8); White Blood Cell Count 4.1 X10^3/uL (4.5-11.0)
[2021-10-17 11:56] LABS: Hemoglobin A1C% w Est Avg Glu 6.3 % (4.0-6.0)
[2021-10-17 12:01] LABS: Alanine Aminotransferase 40 IU/L (<50); Albumin 4.3 g/dL (3.5-5.0); Albumin Globulin Ratio 1.3 (1.0-2.8); Alkaline Phosphatase 55 U/L (38-126); Aspartate Aminotransferase 46 IU/L (17-59); BUN Creatinine Ratio 13.8 (6-22); Bilirubin Total 0.8 mg/dL (0.2-1.3); Blood Urea Nitrogen 13 mg/dL (9-20); Calcium 9.4 mg/dL (8.4-10.2); Carbon Dioxide 29 mmol/L (22-32); Chloride 107 mmol/L (98-107); Cholesterol 208 mg/dL (140-199); Estimated Glomerular Filt Rate > 60.0 mL/min (>60); Globulin 3.3 g/dL (1.7-4.1); Glucose 105 mg/dL (80-110); HDL Cholesterol 48 mg/dL (40-60); HEMOLYSIS < 15 (0-50); LDL Cholesterol Calculated 139 mg/dL (<100); Potassium 4.6 mmol/L (3.4-5.1); Sodium 138 mmol/L (137-145); Total Protein 7.6 g/dL (6.3-8.2); Triglycerides 105 mg/dL (35-150)
== END ==
PROVIDERS: PCP Family Medicine; Referring Provider Family Medicine; Visit Provider Family Medicine
DX: E11.9 Type 2 diabetes mellitus without complications (principal); E78.5 Hyperlipidemia, unspecified; I10 Essential (primary) hypertension; Z78.9 Other specified health status
CPT/HCPCS: 36415; 80053; 80061; 83036; 85025

== ENCOUNTER → 2022-02-16 13:33 | Outpatient (CLI) | payer MEDICARE, SELFPAY ==
[2022-02-16 14:54] LABS: COVID19 -Nasal RAPID Negative (Negative)
== END ==
PROVIDERS: PCP Family Medicine; Visit Provider Student in an Organized Health Care Education/Training Program
DX: Z20.822 Contact with and (suspected) exposure to COVID-19 (principal)
CPT/HCPCS: 87635

== ENCOUNTER → 2022-10-22 08:39 | Outpatient (CLI) | payer MEDICARE, SELFPAY ==
[2022-10-22 09:38] LABS: Add Manual Diff / Slide Review NO; Basophils Absolute Auto 0 /uL (0-100); Basophils Percent Auto 0.5 % (0-2); Eosinophils Absolute Auto 100 /uL (0-450); Eosinophils Percent Auto 2.9 % (2-4); Hematocrit 45.6 % (41-53); Hemoglobin 15.4 g/dL (13.5-17.5); Lymphocytes Absolute Auto 1800 /uL (1100-4500); Mean Corpuscular HGB Conc 33.7 % (30-36); Mean Corpuscular Hemoglobin 32.7 PG (26-34); Mean Corpuscular Volume 96.9 fL (80-100); Monocytes Absolute Auto 300 /uL (0-900); Monocytes Percent Auto 7.3 % (3-14); Neutrophils Absolute Auto 2300 /uL (1500-7000); Neutrophils Percent Auto 50.3 % (50-75); Platelet Count 134 X10^3/uL (150-400); Red Blood Cell Count 4.71 X10^6/uL (4.5-5.9); Red Cell Distribution Width 13.3 % (11.6-14.8); White Blood Cell Count 4.6 X10^3/uL (4.5-11.0)
[2022-10-22 10:27] LABS: Creatinine Urine Random 86.9 mg/dL
[2022-10-22 10:29] LABS: Alanine Aminotransferase 46 IU/L (<50); Albumin 4.3 g/dL (3.5-5.0); Albumin Globulin Ratio 1.2 (1.0-2.8); Alkaline Phosphatase 65 U/L (38-126); Aspartate Aminotransferase 45 IU/L (17-59); BUN Creatinine Ratio 14.5 (6-22); Bilirubin Total 0.8 mg/dL (0.2-1.3); Blood Urea Nitrogen 12 mg/dL (9-20); Calcium 9.1 mg/dL (8.4-10.2); Carbon Dioxide 26 mmol/L (22-32); Chloride 101 mmol/L (98-107); Cholesterol 229 mg/dL (140-199); Estimated Glomerular Filt Rate > 60 mL/min (>60); Globulin 3.5 g/dL (1.7-4.1); Glucose 128 mg/dL (80-110); HDL Cholesterol 52 mg/dL (40-60); HEMOLYSIS < 15 (0-50); LDL Cholesterol Calculated 158 mg/dL (<100); Potassium 4.2 mmol/L (3.4-5.1); Sodium 136 mmol/L (137-145); Total Protein 7.8 g/dL (6.3-8.2); Triglycerides 93 mg/dL (35-150)
[2022-10-22 10:34] LABS: Microalbumi Creatinin Ratio Ur 20.7 ug/mg CR (<30); Microalbumin Urine Random 1.8 mg/dL (0-1.6)
[2022-10-22 11:08] LABS: Hemoglobin A1C% w Est Avg Glu 6.5 % (4.0-6.0)
== END ==
PROVIDERS: PCP Family Medicine; Referring Provider Family Medicine; Visit Provider Family Medicine
DX: E11.9 Type 2 diabetes mellitus without complications (principal); E78.5 Hyperlipidemia, unspecified; I10 Essential (primary) hypertension; L30.9 Dermatitis, unspecified; Z78.9 Other specified health status
CPT/HCPCS: 36415; 80053; 80061; 82043; 82570; 83036; 85025

== ENCOUNTER → 2023-11-29 09:22 | Outpatient (CLI) | payer MEDICARE, SELFPAY ==
[2023-11-29 10:42] LABS: Add Manual Diff / Slide Review NO; Basophils Absolute Auto 0 /uL (0-100); Basophils Percent Auto 0.4 % (0-2); Eosinophils Absolute Auto 200 /uL (0-450); Hematocrit 44.7 % (41-53); Hemoglobin 15.2 g/dL (13.5-17.5); Lymphocytes Absolute Auto 2200 /uL (1100-4500); Lymphocytes Percent Auto 40.7 % (25-40); Mean Corpuscular Hemoglobin 33.3 PG (26-34); Monocytes Absolute Auto 400 /uL (0-900); Neutrophils Absolute Auto 2600 /uL (1500-7000); Neutrophils Percent Auto 48.9 % (50-75); Platelet Count 129 X10^3/uL (150-400); Red Blood Cell Count 4.57 X10^6/uL (4.5-5.9); Red Cell Distribution Width 13.8 % (11.6-14.8); White Blood Cell Count 5.4 X10^3/uL (4.5-11.0)
[2023-11-29 10:50] LABS: Alanine Aminotransferase 65 IU/L (<50); Albumin Globulin Ratio 1.1 (1.0-2.8); Alkaline Phosphatase 69 U/L (38-126); Aspartate Aminotransferase 54 IU/L (17-59); BUN Creatinine Ratio 12.9 (6-22); Bilirubin Total 0.6 mg/dL (0.2-1.3); Blood Urea Nitrogen 11 mg/dL (9-20); Calcium 9.1 mg/dL (8.4-10.2); Carbon Dioxide 26 mmol/L (22-32); Chloride 107 mmol/L (98-107); Cholesterol 217 mg/dL (140-199); Estimated Glomerular Filt Rate > 60 mL/min (>60); Globulin 3.7 g/dL (1.7-4.1); Glucose 137 mg/dL (80-110); HDL Cholesterol 47 mg/dL (40-60); HEMOLYSIS < 15 (0-50); LDL Cholesterol Calculated 141 mg/dL (<100); Potassium 4.2 mmol/L (3.4-5.1); Sodium 139 mmol/L (137-145); Total Protein 7.7 g/dL (6.3-8.2); Triglycerides 143 mg/dL (35-150)
[2023-11-29 11:16] LABS: Prostate Specific Antigen Scrn 2.34 ng/mL (0.1-4.0)
[2023-11-29 11:18] LABS: TSH w/ Reflex to FT4 1.17 uIU/mL (0.47-4.68)
[2023-11-29 11:27] LABS: Hemoglobin A1C% w Est Avg Glu 6.6 % (4.0-6.0)
== END ==
PROVIDERS: PCP Family Medicine; Referring Provider Family Medicine; Visit Provider Family Medicine
DX: E78.5 Hyperlipidemia, unspecified (principal); E11.9 Type 2 diabetes mellitus without complications; Z12.5 Encounter for screening for malignant neoplasm of prostate; N41.9 Inflammatory disease of prostate, unspecified; I10 Essential (primary) hypertension; Z79.899 Other long term (current) drug therapy
CPT/HCPCS: 36415; 80053; 80061; 83036; 84443; 85025; G0103

== ENCOUNTER → 2023-12-20 11:55 | Outpatient (CLI) | payer MEDICARE, SELFPAY ==
--- NOTE | 2023-12-20 11:56 | DI.MRI.S_ITS ---
PROCEDURE: MR BRAIN (IAC) WWO CON INDICATIONS: tinnitus and vertigo TECHNIQUE: Noncontrast sagittal T1 spin echo, axial FLAIR, axial gradient echo, axial diffusion and ADC through the brain. Axial thin-slice 3D CISS, coronal TruFISP, axial T1 spin echo with fat saturation through the internal auditory canals. After the administration of contrast, thin slice axial and coronal T1 spin echo with fat saturation through the internal auditory canals, and axial and coronal and sagittal T1 spin echo with fat saturation through the brain. COMPARISON: None. FINDINGS: Image quality: Excellent. Cerebellopontine angles: No cerebellopontine angle masses. Inner ear structures appear normally formed. No suspicious enhancement in the internal auditory canal or along the course of the 7th cranial nerve. CSF spaces: Ventricles are normal in size and shape. No extra-axial fluid collections. Basal cisterns are patent. Brain: No intracranial bleeds or mass effects. Velasquez-white matter interface is intact. No abnormal intracranial enhancement. Diffusion weighted images demonstrate no acute ischemic insults. Brainstem appears normal. Normal intravascular flow voids are present. Note is made of age-appropriate brain parenchymal volume loss and chronic small vessel ischemic changes. Skull and face: Calvarial marrow signal is normal. Orbits appear normal. Sinuses: Sinuses and mastoids are clear. IMPRESSION: No significant abnormality is seen. Specifically, no masses or abnormal enhancement are seen within the cerebellopontine angle cisterns or within the internal auditory canals. Dictated by: Wilner Rene M.D. on 12/20/2023 at 12:57 Approved by: Wilner Rene M.D. on 12/20/2023 at 12:58
== END ==
PROVIDERS: PCP Family Medicine; Referring Provider Family Medicine; Visit Provider Family Medicine
DX: R42 Dizziness and giddiness (principal); H93.19 Tinnitus, unspecified ear
CPT/HCPCS: 70553; A9579

== ENCOUNTER → 2024-03-09 08:20 | Outpatient (CLI) | payer MEDICARE, SELFPAY ==
[2024-03-09 10:39] LABS: Cholesterol 204 mg/dL (140-199); HDL Cholesterol 49 mg/dL (40-60); LDL Cholesterol Calculated 132 mg/dL (<100); Triglycerides 113 mg/dL (35-150)
[2024-03-09 10:55] LABS: Creatinine Urine Random 104.76 mg/dL
[2024-03-09 10:59] LABS: Microalbumin Urine Random 0.9 mg/dL (0-1.6)
[2024-03-09 12:40] LABS: Hemoglobin A1C% w Est Avg Glu 5.7 % (4.0-6.0)
== END ==
PROVIDERS: PCP Family Medicine; Referring Provider Family Medicine; Visit Provider Family Medicine
DX: E78.5 Hyperlipidemia, unspecified (principal); E11.9 Type 2 diabetes mellitus without complications; I10 Essential (primary) hypertension; Z78.9 Other specified health status
CPT/HCPCS: 36415; 80061; 82043; 82570; 83036

== ENCOUNTER → 2024-08-25 08:53 | Outpatient (CLI) | payer MEDICARE, SELFPAY ==
[2024-08-25 09:47] LABS: Hemoglobin A1C% w Est Avg Glu 5.5 % (4.0-6.0)
== END ==
PROVIDERS: PCP Family Medicine; Referring Provider Family Medicine; Visit Provider Family Medicine
DX: E11.36 Type 2 diabetes mellitus with diabetic cataract (principal)
CPT/HCPCS: 36415; 83036

== ENCOUNTER 2024-09-11 08:24 | Day surgery (SDC) | payer MEDICARE, SELFPAY ==
[2024-09-11 09:23] VITALS: BP 135/76; PULSE 93; RESP 14; TEMP 36.1; O2SAT 98
[2024-09-11] MEDS: SODIUM CHLORIDE 0.9% 1,000 ML 84 ML IV (09:34)
--- NOTE | 2024-09-11 09:56 | P.HP_ITS ---
History of Present Illness History of Present Illness Date Patient Seen: 09/11/24 Time Patient Seen: 09:56 Date of Onset of Symptoms: 09/11/24 Chief complaint: Screening Colonoscopy Narrative: 69-year-old white male presents for screening colonoscopy. Last colonoscopy was over 10 years ago no polyps. [facility] Medical History (Updated 09/11/24 @ 09:57 by Trev Maldonado MD) Colon cancer screening (~09/11/24) Type 2 diabetes mellitus with diabetic cataract Onychomycosis Hyperlipidemia Acne (Unknown) Actinic keratosis (Unknown) Asthma (Unknown) Chronic back pain (Unknown) Fractures (Unknown) Shoulder pain (Unknown) Tuberculosis (Unknown) Chickenpox Measles Mumps Diabetes (2017) Glaucoma (2010) Vertigo (2004) Surgical History History of prostate surgery Hx of shoulder surgery (2016) Family History Father No problems noted. Brother No problems noted. Sister Diabetes mellitus Grandfather Diabetes mellitus Social History Smoking Status: Never smoker alcohol intake: current substance use type: does not use Meds Home Medications and Allergies Home Medications Medication Instructions Recorded Confirmed Type blood sugar diagnostic (Accu-Chek #100 ea 11/21/18 08/29/24 Rx Isis Plus test strips) lancets (Accu-Chek Softclix #100 ea 11/21/18 08/29/24 Rx Lancets) latanoprost 0.005 % eye drops 1 drp EYE-BOTH 11/26/22 08/29/24 History albuterol sulfate 90 mcg/actuation See Rx Instructions .Route 03/03/23 08/29/24 Rx aerosol inhaler .COMPLEX #6.7 grams losartan 50 mg tablet 50 mg PO DAILY #90 tabs 12/13/23 08/29/24 Rx sodium,potassium,mag sulfates 17.5 See Rx Instructions PO .COMPLEX 08/25/24 08/29/24 Rx gram-3.13 gram-1.6 gram oral soln #354 mL (Suprep Bowel Prep Kit) semaglutide 2 mg/dose (8 mg/3 mL) 2 mg (0.75 mL) SUBCUT QWEEK #3 mL 08/29/24 09/11/24 Rx subcutaneous pen injector (Ozempic) Allergies Allergy/AdvReac Type Severity Reaction Status Date / Time iodine [IODINE] Allergy Unknown Verified 09/11/24 09:30 shellfish derived Allergy Unknown Verified 09/11/24 09:30 [SHELLFISH DERIVED] [id number]-[id number]-KrG Reductase AdvReac Intermediate Rhabdomyoly Verified 09/11/24 09:30 Inhibitor sis [Kfdnuhv-Ahd-Qdz Reductase Inhibitor] MIRIAM Inhibitors AdvReac Mild Cough Verified 09/11/24 09:30 Review of Systems Review of Systems ROS: Yes All systems reviewed with the patient and are negative except as otherwise documented Exam Vital Signs (past 8 hours): - 09/11/24 09:23 Temperature 97 F L Pulse Rate 93 H Respiratory Rate 14 Blood Pressure 135/76 Pulse Oximetry 98 Oxygen Delivery Method Room Air Oxygen Delivery Method Room Air Narrative Exam Narrative: Gen: NAD, sitting comfortably in bed, appears well HEENT: Sclera are anicteric, head is normocephalic and atraumatic, trachea is midline. CV: RRR, no JVD Resp: clear to auscultation bilaterally, equal chest wall movement bilaterally Abd: soft, nontender, normoactive bowel sounds Ext: no edema, full range of motion Neuro: Cranial nerves II-XII grossly intact, no focal deficits Skin: No erythema or ecchymosis Assessment & Plan Assessment and plan (1) Colon cancer screening: Status: Acute Assessment & Plan narrative: Patient presents for colonoscopy Risks, benefits, alternatives to colonoscopy explained, including but not limited to bowel perforation or other serious complication requiring surgery at less than 1 in 5000 colonoscopies, abdominal pain, cramping or bleeding and less than 1% of colonoscopies, and the chances that we find a diagnosis that would require further intervention of about 2%. Patient agrees to proceed. Time-Based Coding :: [TOTAL MINUTES] spent with patient and on the chart (including review of chart, obtaining history, exam, reviewing outside data, placing orders, documenting exam and treatment plan, and counseling patient) on [DATE].
--- NOTE | 2024-09-11 10:25 | P.OP.COLON_ITS ---
Operative Date/Time/Diagnoses Date of procedure: 09/11/24 Time of procedure: 10:25 Pre-op diagnosis: Colon screening Post-op diagnosis: same Procedure & Clinicians Study performed: Screening colonoscopy Same procedure as scheduled: Yes Indications: Colon screening Surgeon: Trev Maldonado Procedure Notes SCOAP/Timeout: Performed Procedure in detail: Time-out was performed. Mac was induced. Patient was placed in left lateral decubitus position. The perineum was inspected without any gross abnormality. Lubricated pediatric colonoscope was inserted and advanced to the cecum. The terminal ileum was intubated. The colonoscope was withdrawn slowly inspecting the circumference of the colon. Very small polyps may have been missed, prep quality was adequate. Retroflexed view of the rectum showed small, non prol apsed nonbleeding internal hemorrhoids. The scope was withdrawn the patient was taken to PACU in good condition. Scope withdrawal time: 5 Sedation minutes: 15 Findings: internal hemorrhoids Specimen(s): none sent Complications: none Impression: Normal colon, internal hemorrhoids Post-procedure Recommendations: Colonoscopy in 10 years Follow up: as needed Disposition: PACU
[2024-09-11 10:28] VITALS: BP 94/68; PULSE 103; RESP 20; TEMP 37.3; O2SAT 93
[2024-09-11 10:31] VITALS: BP 104/76; PULSE 104; RESP 20; O2SAT 95
[2024-09-11 10:36] VITALS: BP 106/79; PULSE 96; RESP 16; O2SAT 96
== END 2024-09-11 10:51 | disposition home or self-care (01) ==
PROVIDERS: PCP Family Medicine; Referring Provider Surgery; Visit Provider Surgery
PROC: 0DJD8ZZ Inspection of Lower Intestinal Tract, Via Natural or Artificial Opening Endoscopic (ICD-10-PCS; CPT 45378; principal; 2024-09-11 09:45)
DX: Z12.11 Encounter for screening for malignant neoplasm of colon (principal); K64.8 Other hemorrhoids; E11.36 Type 2 diabetes mellitus with diabetic cataract; H26.9 Unspecified cataract; I10 Essential (primary) hypertension; Z79.84 Long term (current) use of oral hypoglycemic drugs
CPT/HCPCS: G0121; J2405; J2704

== ENCOUNTER → 2024-11-17 10:37 | Outpatient (CLI) | payer MEDICARE, SELFPAY ==
[2024-11-17 11:33] LABS: Add Manual Diff / Slide Review NO; Basophils Absolute Auto 0 /uL (0-100); Basophils Percent Auto 0.4 % (0-2); Eosinophils Absolute Auto 100 /uL (0-450); Eosinophils Percent Auto 2.1 % (2-4); Hemoglobin 15.9 g/dL (13.5-17.5); Lymphocytes Absolute Auto 1900 /uL (1100-4500); Lymphocytes Percent Auto 40.6 % (25-40); Mean Corpuscular HGB Conc 34.4 % (30-36); Mean Corpuscular Hemoglobin 33.2 PG (26-34); Mean Corpuscular Volume 96.5 fL (80-100); Monocytes Absolute Auto 300 /uL (0-900); Neutrophils Absolute Auto 2400 /uL (1500-7000); Neutrophils Percent Auto 49.9 % (50-75); Platelet Count 147 X10^3/uL (150-400); Red Blood Cell Count 4.77 X10^6/uL (4.5-5.9); Red Cell Distribution Width 13.6 % (11.6-14.8); White Blood Cell Count 4.8 X10^3/uL (4.5-11.0)
[2024-11-17 11:50] LABS: Alanine Aminotransferase 31 IU/L (<50); Albumin 4.4 g/dL (3.5-5.0); Albumin Globulin Ratio 1.3 (1.0-2.8); Alkaline Phosphatase 69 U/L (38-126); Aspartate Aminotransferase 40 IU/L (17-59); BUN Creatinine Ratio 12.9 (6-22); Bilirubin Total 0.9 mg/dL (0.2-1.3); Blood Urea Nitrogen 12 mg/dL (9-20); Calcium 9.5 mg/dL (8.4-10.2); Carbon Dioxide 23 mmol/L (22-32); Chloride 104 mmol/L (98-107); Cholesterol 216 mg/dL (140-199); Estimated Glomerular Filt Rate > 60 mL/min (>60); Globulin 3.3 g/dL (1.7-4.1); Glucose 104 mg/dL (80-110); HDL Cholesterol 50 mg/dL (40-60); HEMOLYSIS < 15 (0-50); LDL Cholesterol Calculated 146 mg/dL (<100); Potassium 4.2 mmol/L (3.4-5.1); Sodium 137 mmol/L (137-145); Total Protein 7.7 g/dL (6.3-8.2); Triglycerides 100 mg/dL (35-150)
[2024-11-17 12:08] LABS: Hemoglobin A1C% w Est Avg Glu 5.2 % (4.0-6.0)
[2024-11-17 12:19] LABS: Microalbumin Urine Random 1.8 mg/dL (0-1.6)
[2024-11-17 12:25] LABS: TSH w/ Reflex to FT4 1.17 uIU/mL (0.47-4.68)
== END ==
PROVIDERS: PCP Family Medicine; Referring Provider Family Medicine; Visit Provider Family Medicine
DX: E78.5 Hyperlipidemia, unspecified (principal); E11.36 Type 2 diabetes mellitus with diabetic cataract; Z12.5 Encounter for screening for malignant neoplasm of prostate; I10 Essential (primary) hypertension; Z78.9 Other specified health status
CPT/HCPCS: 36415; 80053; 80061; 82043; 82570; 83036; 84443; 85025; G0103

== ENCOUNTER → 2025-03-29 11:14 | Outpatient (CLI) | payer MEDICARE, SELFPAY ==
[2025-03-29 12:06] LABS: Add Manual Diff / Slide Review NO; Hematocrit 46.6 % (41-53); Hemoglobin 16.0 g/dL (13.5-17.5); Lymphocytes Absolute Auto 1800 /uL (1100-4500); Mean Corpuscular HGB Conc 34.4 % (30-36); Mean Corpuscular Hemoglobin 33.6 PG (26-34); Mean Corpuscular Volume 97.8 fL (80-100); Platelet Count 133 X10^3/uL (150-400)
[2025-03-29 12:20] LABS: Hemoglobin A1C% w Est Avg Glu 5.7 % (4.0-6.0)
[2025-03-29 12:31] LABS: Alanine Aminotransferase 27 IU/L (<50); Albumin 4.5 g/dL (3.5-5.0); Albumin Globulin Ratio 1.3 (1.0-2.8); Alkaline Phosphatase 75 U/L (38-126); Blood Urea Nitrogen 12 mg/dL (9-20); Calcium 9.5 mg/dL (8.4-10.2); Carbon Dioxide 23 mmol/L (22-32); Chloride 104 mmol/L (98-107); Cholesterol 226 mg/dL (140-199); Estimated Glomerular Filt Rate > 60 mL/min (>60); Globulin 3.5 g/dL (1.7-4.1); Glucose 100 mg/dL (70-99); HDL Cholesterol 53 mg/dL (40-60); HEMOLYSIS < 15 (0-50); Potassium 4.3 mmol/L (3.4-5.1); Sodium 137 mmol/L (137-145); Total Protein 8.0 g/dL (6.3-8.2); Triglycerides 140 mg/dL (35-150)
[2025-03-29 12:57] LABS: TSH w/ Reflex to FT4 1.56 uIU/mL (0.47-4.68)
[2025-03-29 12:59] LABS: Microalbumi Creatinin Ratio Ur 17.0 ug/mg CR (<30)
== END ==
PROVIDERS: PCP Family Medicine; Referring Provider Family Medicine; Visit Provider Family Medicine
DX: E78.5 Hyperlipidemia, unspecified (principal); E11.36 Type 2 diabetes mellitus with diabetic cataract; I10 Essential (primary) hypertension; Z78.9 Other specified health status
CPT/HCPCS: 36415; 80053; 80061; 82043; 82570; 83036; 84443; 85025

== ENCOUNTER → 2025-06-22 10:39 | Outpatient (CLI) | payer MEDICARE, SELFPAY ==
[2025-06-22 11:22] LABS: Add Manual Diff / Slide Review NO; Hematocrit 45.1 % (41-53); Hemoglobin 15.6 g/dL (13.5-17.5); Lymphocytes Absolute Auto 1900 /uL (1100-4500); Mean Corpuscular HGB Conc 34.6 % (30-36); Mean Corpuscular Hemoglobin 33.1 PG (26-34); Mean Corpuscular Volume 95.6 fL (80-100); Platelet Count 140 X10^3/uL (150-400)
[2025-06-22 12:05] LABS: Hemoglobin A1C% w Est Avg Glu 5.8 % (4.0-6.0)
[2025-06-22 12:07] LABS: Alanine Aminotransferase 25 IU/L (<50); Albumin 4.5 g/dL (3.5-5.0); Albumin Globulin Ratio 1.3 (1.0-2.8); Alkaline Phosphatase 68 U/L (38-126); Blood Urea Nitrogen 14 mg/dL (9-20); Calcium 9.4 mg/dL (8.4-10.2); Carbon Dioxide 24 mmol/L (22-32); Chloride 105 mmol/L (98-107); Estimated Glomerular Filt Rate > 60 mL/min (>60); Globulin 3.5 g/dL (1.7-4.1); Glucose 107 mg/dL (70-99); HEMOLYSIS < 15 (0-50); Potassium 4.2 mmol/L (3.4-5.1); Sodium 137 mmol/L (137-145); Total Protein 8.0 g/dL (6.3-8.2)
[2025-06-22 12:22] LABS: TSH w/ Reflex to FT4 1.65 uIU/mL (0.47-4.68)
[2025-06-22 13:47] LABS: Microalbumi Creatinin Ratio Ur 21.0 ug/mg CR (<30)
== END ==
PROVIDERS: PCP Family Medicine; Referring Provider Family Medicine; Visit Provider Family Medicine
DX: E78.5 Hyperlipidemia, unspecified (principal); E11.36 Type 2 diabetes mellitus with diabetic cataract; N41.9 Inflammatory disease of prostate, unspecified; Z98.890 Other specified postprocedural states; Z78.9 Other specified health status; I10 Essential (primary) hypertension; Z13.29 Encounter for screening for other suspected endocrine disorder
CPT/HCPCS: 36415; 80053; 82043; 82570; 83036; 84443; 85025

== ENCOUNTER → 2025-06-28 09:22 | Outpatient (CLI) | payer MEDICARE, SELFPAY ==
--- NOTE | 2025-06-28 09:23 | DI.RAD.S_ITS ---
PROCEDURE: XR CHEST 2V INDICATIONS: right lung crackles TECHNIQUE: 2 views of the chest were acquired. COMPARISON: [facility], CR, XR CHEST 1V, 04/13/2020, 19:27. FINDINGS: Surgical changes and devices: None. Lungs and pleura: Reduced right lung expansion. Bilateral peribronchial thickening and scattered opacities, predominantly affecting right lower lobe. Bibasilar subsegmental atelectasis some of which may be related expiratory result. No pneumothorax. Mediastinum: Prominent annie, pulmonary vascular congestion and/or hilar lymph nodes. Mildly enlarged cardiopericardial silhouette. Bones and chest wall: No suspicious bony abnormalities. Soft tissues appear unremarkable. IMPRESSION: Peribronchial thickening and patchy opacities, enlarged cardiopericardial silhouette and prominent annie as discussed above. Follow-up suggested. If symptoms persist or worsen, CT chest could be performed. Dictated by: Keisha Ortiz RRA Interpreted: Jere Brito MD on 06/28/2025 at 10:50 Transcribed by: CHINO on 06/28/2025 at 10:51 Approved by: Jere Brito M.D. on 07/02/2025 at 10:53
== END ==
PROVIDERS: PCP Family Medicine; Referring Provider Family Medicine; Visit Provider Family Medicine
DX: I10 Essential (primary) hypertension (principal); R09.89 Other specified symptoms and signs involving the circulatory and respiratory systems; E11.36 Type 2 diabetes mellitus with diabetic cataract
CPT/HCPCS: 71046

== ENCOUNTER → 2025-07-06 09:07 | Outpatient (CLI) | payer MEDICARE, SELFPAY ==
--- NOTE | 2025-07-06 09:08 | DI.CT.S_ITS ---
PROCEDURE: CT CHEST WO CON
== END ==
PROVIDERS: PCP Family Medicine; Referring Provider Family Medicine; Visit Provider Family Medicine
DX: J43.2 Centrilobular emphysema (principal); I51.7 Cardiomegaly; K44.9 Diaphragmatic hernia without obstruction or gangrene; I25.10 Atherosclerotic heart disease of native coronary artery without angina pectoris; R09.89 Other specified symptoms and signs involving the circulatory and respiratory systems; R93.89 Abnormal findings on diagnostic imaging of other specified body structures
CPT/HCPCS: 71250